=== PATIENT | male | born 1985 | race Two or more races ===

== ENCOUNTER → 2017-09-29 | Outpatient (CLI) | payer MEDICAID ==
--- NOTE | 2017-09-29 14:12 | MR ---
EXAMINATION TYPE: MR shoulder RT wo con DATE OF EXAM: 09/29/2017 COMPARISON: Outside radiographs to 09/29/2017 HISTORY: 32-year-old male Right shoulder pain TECHNIQUE: Multiplanar, multisequence imaging of the right shoulder is performed without contrast. FINDINGS: There is some linear intrasubstance signal within the intracapsular portion of the long head biceps t endon. The extracapsular portion is intact and appropriately situated along the bicipital groove. The subscapularis tendon is intact. Mild marginal spurring and capsular hypertrophy at the AC joint. No significant mass effect onto the underlying cuff. Mild heterogeneity of the supraspinatus and infraspinatus tendons with minimal bursal sided fraying o f the supraspinatus tendon and trace effusion in the subacromial/subdeltoid bursa, posteriorly. No discrete tear of either supraspinatus or infraspinatus tendons. No atrophy of the rotator cuff musculature. Evaluation of the glenohumeral joint shows overall maintained articular cartilage. No labral tear giv en nonarthrographic technique and no paralabral cyst. No significant glenohumeral joint effusion. No Hill-Sachs deformity or os acromiale. Patchy red marrow hyperplasia is present anteriorly seen in the setting of anemia, smoking, and chron ic disease. IMPRESSION: 1. Supraspinatus tendinosis with minimal bursal sided fraying. No discrete rotator cuff tear or muscl e atrophy. 2. Some linear signal in the intracapsular portion of the long head biceps tendon suggests tendinosis or interstitial tear. 3. Mild AC joint OA. 4. Trace subacromial/subdeltoid bursal effusion.
== END | disposition home or self-care (01) ==
LOC: RADMRIMAIN 12:58
PROVIDERS: ATTEND Orthopaedic Surgery
DX: M19.011 Primary osteoarthritis, right shoulder (principal); M75.81 Other shoulder lesions, right shoulder